=== PATIENT | female | born 1960 | race African-American/Black ===

== ENCOUNTER 2021-11-17 00:01 | Day surgery (SDC) | payer OTHER, SELFPAY ==
[2021-11-02 14:00] VITALS: BMI 35.6
[2021-11-17 07:09] VITALS: BP 159/81; PULSE 77; RESP 18; TEMP 35.9; O2SAT 99; BMI 37.1
[2021-11-17] MEDS: LACTATED RINGERS 1,000 ML 150 ML IV CONT (07:23)
--- NOTE | 2021-11-17 08:02 | P.PNAN_ITS ---
Anes - Initial Pre Proc Eval Procedure: Operation Date: 11/17/21 08:30 Proposed Procedures p Screening Colonoscopy - Adryan Fu MD Date/Time: 11/17/21 08:02 Surgeon: Adryan Fu MD Pre Op Diagnosis: neoplasm screening Patient Data Age: 61 Gender: F Height: 1.65 m Weight: 101.3 kg Last Vital Signs Temp 96.7 F L 11/17/21 07:09 Pulse 77 11/17/21 07:09 Resp 18 11/17/21 07:09 BP 159/81 H 11/17/21 07:09 Pulse Ox 99 11/17/21 07:09 O2 Del Method Room Air 11/17/21 07:09 Allergies Allergy/AdvReac Type Severity Reaction Status Date / Time Penicillins Allergy Mild Rash Verified 11/17/21 07:13 Home Medications Medication Instructions Recorded Confirmed Type anastrozole 1 mg tablet 1 mg PO DAILY 08/19/21 11/17/21 History loratadine 10 mg tablet (Claritin) 10 mg PO DAILY PRN allergies 08/19/21 11/17/21 History calcium carbonate 600 mg-vitamin 1 tablet PO DAILY 11/02/21 11/17/21 History D3 5 mcg (200 unit) tablet Patient hx anesthesia problems: none Family hx anesthesia problems: none Results Review: All pre-operative results and documents have been reviewed as part of the pre- operative evaluation. [facility] Past Medical History Medical History (Updated 09/07/21 @ 13:22 by Gilberto Leyva) Allergies History of breast cancer IBS (irritable bowel syndrome) Surgical History Surgical History (Updated 08/19/21 @ 12:08 by Tiffanie Mishra CMA) H/O dilation and curettage History of cholecystectomy History of hysterectomy, supracervical History of lumpectomy of left breast Family History Family History Other Asthma Breast cancer Diabetes mellitus Heart disease Hypertension Social History Social History Smoking status: Never smoker Alcohol intake: never Substance use: never Living arrangements: with family Anes - Eval Final PreProcedure Day of Procedure 11/17/21 08:02 Patient weight: obese Heart: regular rate and rhythm Lungs: clear to auscultation Airway: Mallampati scale class II Neurological: alert and oriented Last oral intake: >/= 8 hours ASA classification: III Emergent: no Anesthetic plan: proceed Anesthesia type and monitoring: general GIVS and standard monitoring Results Review: All pre-operative results and documents have been reviewed as part of the pre- operative evaluation. Informed Consent: The patient's anesthetic plan and its attendant risks and benefits were discussed with the patient/family/POA. Questions were solicited and answers provided to the satisfaction of the patient/family/POA.
--- NOTE | 2021-11-17 08:15 | PM.HPGS ---
History of Present Illness History of Present Illness Consent: Risks, benefits, and alternatives have been discussed and questions answered. Patient agrees to proceed with procedure. Chief complaint: neoplasm screening Narrative: Mae Gutierrez is a 61 year old female here for first screening colonoscopy Review of Systems Constitutional: Constitutional: Denies headache(s) and Denies weakness Eyes: Eyes: Denies blurry vision ENT: Reports Normal hearing present, Denies headache(s) and Denies neck pain Cardiovascular: Cardiovascular: Denies chest pain and Denies dyspnea Respiratory: Respiratory: Denies dyspnea Gastrointestinal: Gastrointestinal: Reports no additional gastrointestinal complaints Genitourinary: Genitourinary: Denies dysuria Musculoskeletal: Musculoskeletal: Denies neck pain Integumentary/Breasts: Skin/Breast: Denies dry skin Neurologic: Reports Normal hearing present, Denies headache(s) and Denies weakness Psychiatric: Psychiatric: Denies anxiety Endocrine: Endocrine: Denies change in body appearance Hematologic/Lymphatic: Hematologic/Lymphatic: Denies easy bleeding Allergic/Immunologic: Allergic/Immunologic: Denies urticaria PMF Past Medical History Medical History (Updated 11/17/21 @ 08:16 by Adryan Fu MD) Allergies Colon cancer screening History of breast cancer IBS (irritable bowel syndrome) Surgical History Surgical History (Updated 08/19/21 @ 12:08 by Tiffanie Mishra CMA) H/O dilation and curettage History of cholecystectomy History of hysterectomy, supracervical History of lumpectomy of left breast Family History Family History Other Asthma Breast cancer Diabetes mellitus Heart disease Hypertension Social History Social History Smoking status: Never smoker Alcohol intake: never Substance use: never Living arrangements: with family Meds Home Medications and Allergies Home Medications Medication Instructions Recorded Confirmed Type anastrozole 1 mg tablet 1 mg PO DAILY 08/19/21 11/17/21 History loratadine 10 mg tablet (Claritin) 10 mg PO DAILY PRN allergies 08/19/21 11/17/21 History calcium carbonate 600 mg-vitamin 1 tablet PO DAILY 11/02/21 11/17/21 History D3 5 mcg (200 unit) tablet Allergies Allergy/AdvReac Type Severity Reaction Status Date / Time Penicillins Allergy Mild Rash Verified 11/17/21 07:13 Vital Signs Vital Signs - 24 hr 11/17/21 07:09 Temperature 96.7 F L Pulse Rate 77 Respiratory Rate 18 Blood Pressure 159/81 H Pulse Oximetry 99 Oxygen Delivery Room Air Exam Const: General: comfortable and no acute distress HENMT: General nose exam: Normal nares present Eyes: General: appearance normal, both eyes and all related structures Neck: Neck: no JVD Resp: Auscultation: clear to auscultation bilaterally Cardio: Rate: regular rate Rhythm: regular rhythm GI: Inspection: non-distended GI Palp: Yes Soft to palpation Skin: General skin exam: normal color Neuro: General: gait normal Speech: normal speech Extrem: General: normal to inspection Psych: Mental Status: mental status grossly normal Assessment and Plan Assessment and plan (1) Colon cancer screening: Code(s): Z12.11 - Encounter for screening for malignant neoplasm of colon Status: Acute Assessment and Plan: colonoscopy
[2021-11-17 08:32] VITALS: BP 109/68; PULSE 76; RESP 28; O2SAT 97
[2021-11-17 08:42] VITALS: BP 116/64; PULSE 76; RESP 24; O2SAT 98
[2021-11-17 08:52] VITALS: BP 117/67; PULSE 75; RESP 21; O2SAT 100
== END 2021-11-17 09:00 | disposition home or self-care (01) ==
PROVIDERS: Visit Provider Internal Medicine Gastroenterology
PROC: 0DJD8ZZ Inspection of Lower Intestinal Tract, Via Natural or Artificial Opening Endoscopic (ICD-10-PCS; CPT 45378; principal; 2021-11-17 08:30)
DX: Z12.11 Encounter for screening for malignant neoplasm of colon (principal); K62.1 Rectal polyp; K57.30 Diverticulosis of large intestine without perforation or abscess without bleeding; K64.8 Other hemorrhoids; Z85.3 Personal history of malignant neoplasm of breast; K58.9 Irritable bowel syndrome, unspecified; Z90.49 Acquired absence of other specified parts of digestive tract; E66.9 Obesity, unspecified; Z68.37 Body mass index [BMI] 37.0-37.9, adult
CPT/HCPCS: 45385; 88305; J2704; J7120